=== PATIENT | female | born 1990 | race Caucasian/White ===

== ENCOUNTER 2016-03-07 17:11 | Inpatient (IN) | payer BC ==
[2016-03-07] VITALS (10 sets, daily range): BP systolic 101–142; BP diastolic 55–76
[~2016-03-07] VITALS: Ht 157.5 cm; Wt 65.0 kg
[2016-03-07] MEDS ORDERED: PRENTAB9 PO (17:21)
[2016-03-07] MEDS ORDERED: DULC5TAB PO (17:22)
[2016-03-07] MEDS ORDERED: ANTA500C PO (17:22)
[2016-03-07 18:59] LABS: MEAN CORPUSCULAR HGB CONC 35.5 g/dl (32.0-36.5); RED CELL DISTRIBUTION WIDTH 12.3 % (11.5-14.5); WHITE BLOOD COUNT 12.7 K/mm3 (4.0-10.0)
[2016-03-07] MEDS ORDERED: LACTATED RINGER'S 1000 ML IV STA (20:52)
[2016-03-07] MEDS ORDERED: miSOPROStol 50 MCG 1/2 TAB (S0191) PO SCH (21:00)
[2016-03-07] MEDS ORDERED: BUTORPHANOL 2 MG/ML INJ (J0595) IV PRN (21:00)
[2016-03-07] MEDS ORDERED: PROMETHAZINE INJ 25 MG/ML VIAL (J2550) IV PRN (21:00)
[2016-03-07] MEDS ORDERED: hydrOXYzine 50 MG TAB PO PRN (21:30)
--- NOTE | 2016-03-07 21:56 | HPE ---
DATE OF ADMISSION: 03/07/2016 A 25-year-old 2, para 0-0-1-0, estimated date of delivery 02/29/2016, here at 41 weeks gestation for induction of labor. Denies regular contractions, loss of fluid, bleeding. Fetus is active. Last normal menstrual period uncertain. Sonogram at 8 weeks confirmed the date of 02/29/2016. Anatomy scan within normal limits. OBSTETRICAL HISTORY: 2015: Elective termination. She is allergic to AZITHROMYCIN. MEDICAL/SURGICAL: Migraines, thyroid disease, tonsillectomy and knee surgery. FAMILY HISTORY: Cancer, hypertension and heart disease. SOCIAL HISTORY: Single. Father of the baby and family present and supportive. Denies tobacco, alcohol or drugs. OBJECTIVE: Prepregnancy weight 115, total weight gain 41 pounds. O+, antibody negative. Pap is ASCUS. Negative human papillomavirus. Rubella immune. VDRL, hepatitis B, hepatitis C, HIV, gonorrhea, Chlamydia all negative. Quad screen within normal limits. 1-hour glucose 69 and group B strep is negative. Vital signs are stable. She is in no apparent distress. Heart rate is regular. Respirations are easy. Abdomen is soft, gravid, longitudinal lie. Irregular contractions. heart 120, moderate variability with accelerations. Cervix is 2-3 cm, 90% and -1. ASSESSMENT: Primipara, postdates, for induction of labor, category one tracing. PLAN: Admit, labor ad jason, anticipate normal spontaneous vaginal .
[2016-03-07] MEDS ORDERED: LR 1,000 ML IV SCH (22:09)
[2016-03-07] MEDS ORDERED: OXYTOCIN DRIP 30 UNITS in APPROPRIATE DILUENT 1 EA IV SCH (22:15)
[2016-03-07] MEDS ORDERED: FENTANYL 2MCG/ML ROPIVACAINE 0.2% NACL 250 ML CADD As Ordered ONE (22:22)
[2016-03-07] MEDS ORDERED: EPIDURAL COMMENT XX SCH (23:05)
[2016-03-07] MEDS ORDERED: REFRIGERATOR IV KEYS XX PRN (23:05)
[2016-03-07] MEDS ORDERED: ePHEDrine SULFATE 25 MG/5 ML(5MG/ML) SYRINGE IV PRN (23:05)
[2016-03-07] MEDS ORDERED: diphenhydrAMINE INJ 50MG/ML VIAL (J1200) IV PRN (23:05)
[2016-03-07] MEDS ORDERED: NALOXONE INJ 0.4 MG/1 ML VIAL (J2310) IV PRN (23:05)
[2016-03-07] MEDS ORDERED: FENTANYL/ROPIVACAINE/NACL CADD 250 ML EPIDURAL SCH (23:05)
[2016-03-07] MEDS ORDERED: ONDANSETRON 4MG/2ML VIAL (J2405) IV PRN (23:05)
[2016-03-07] MEDS ORDERED: EPIDURAL/PCA KEYS XX PRN (23:05)
[2016-03-08] VITALS (24 sets, daily range): BP systolic 97–135; BP diastolic 50–85
[2016-03-08] MEDS ORDERED: OXYTOCIN 30 UNITS IN 0.9% NaCl 500ML IV BAG (J2590) As Ordered ONE (01:22)
[2016-03-08] MEDS ORDERED: IBUPROFEN 800 MG TAB As Ordered ONE (07:32)
[2016-03-08] MEDS ORDERED: ANUSOL HC CREAM 30GM TOP PRN (08:00)
[2016-03-08] MEDS ORDERED: METHYLERGONOVINE MALEATE 0.2 MG TAB PO PRN (08:00)
[2016-03-08] MEDS ORDERED: DOCUSATE SODIUM 100 MG CAP PO PRN (08:00)
[2016-03-08] MEDS ORDERED: MOM 30ML SUSPENSION UDC PO PRN (08:00)
[2016-03-08] MEDS ORDERED: DIBUCAINE 1% OINTMENT 30GM TOP PRN (08:00)
[2016-03-08] MEDS ORDERED: ACETAMINOPHEN 500 MG TAB PO PRN (08:00)
[2016-03-08] MEDS ORDERED: MEASLES,MUMPS,RUBELLA VACCINE INJ (MMR-II) (90707) SC SCH (08:00)
[2016-03-08] MEDS ORDERED: RHOGAM 300 MCG (1500 IU) INJ (J2790) IM SCH (08:00)
--- NOTE | 2016-03-08 08:16 | DN ---
DATE: 03/08/2016 Spontaneous rupture of membranes clear fluid at 2206. Utilized epidural for coping. Fully dilated 0637. Viable male delivered, right occiput anterior (HOMER) at 0716. Spontaneous respirations. Transitioned on maternal abdomen. Cord doubly clamped and cut once pulsations ceased. Apgars 8 and 9. Placenta Hummel intact with three-vessel cord at 0725. Fundus firmed with massage and IV Pitocin bolus. Estimated blood loss 200 mL. First-degree vaginal laceration and bilateral labial lacerations repaired with #3-0 Vicryl Rapide. Infant weight 8 pounds 2 ounces, 3684 grams. Sponge, sharp and instrument count correct. Mom and baby doing well.
[2016-03-08] MEDS: PRENATAL VITAMIN TAB PO SCH (09:00)
[2016-03-08] MEDS: IBUPROFEN 800 MG TAB PO PRN ×2 (13:00→18:39)
[2016-03-08] MEDS ORDERED: IBUPROFEN 800 MG TAB PO PRN (15:30)
[2016-03-09] MEDS: IBUPROFEN 800 MG TAB PO PRN ×2 (04:12→14:43)
[2016-03-09 05:39] VITALS: BP 106/55
[2016-03-09 06:15] VITALS: BP 142/81
[2016-03-09] MEDS: PRENATAL VITAMIN TAB PO SCH (08:18)
[2016-03-09 18:00] VITALS: BP 103/55
[2016-03-10 05:47] VITALS: BP 109/59
[2016-03-10] MEDS: PRENATAL VITAMIN TAB PO SCH (09:00)
[2016-03-10] MEDS ORDERED: ACET50TA PO (10:14)
[2016-03-10] MEDS ORDERED: IBUP-1114 PO (10:16)
[2016-03-10] MEDS: IBUPROFEN 800 MG TAB PO PRN (11:17)
== END 2016-03-10 13:30 | disposition home or self-care (01) | DRG 560 ==
LOC: M LDI 17:11 → M OBS 03-08 12:55
PROVIDERS: ADMIT Advanced Practice Midwife; ATTEND Advanced Practice Midwife
PROC: 3E0P7GC Introduction of Other Therapeutic Substance into Female Reproductive, Via Natural or Artificial Opening (ICD-10-PCS; 2016-03-07)
PROC: 10E0XZZ Delivery of Products of Conception, External Approach (ICD-10-PCS; principal; 2016-03-08)
PROC: 0HQ9XZZ Repair Perineum Skin, External Approach (ICD-10-PCS; 2016-03-08)
DX: O48.0 Post-term pregnancy (principal); O70.0 First degree perineal laceration during delivery; Z3A.41 41 weeks gestation of pregnancy; Z37.0 Single live birth

== ENCOUNTER → 2016-07-11 | Outpatient (REF) | payer BC ==
[~2016-07-11] MED LIST: ACET50TA PO; ANTA500C PO; DULC5TAB PO; IBUP-1114 PO; PRENTAB9 PO
[2016-07-11 14:21] LABS: PERCENT SATURATION 25.9 % (13.2-37.4)
== END ==
LOC: M LAB REF 13:28
PROVIDERS: ATTEND Internal Medicine
DX: D64.9 Anemia, unspecified (principal)

== ENCOUNTER → 2016-08-07 | Outpatient (REF) | payer BC, SELFPAY | LOC: M LAB REF 17:53 | PROVIDERS: ATTEND Advanced Practice Midwife | DX: Z01.411 Encounter for gynecological examination (general) (routine) with abnormal findings (principal); R85.610 Atypical squamous cells of undetermined significance on cytologic smear of anus (ASC-US); Z11.51 Encounter for screening for human papillomavirus (HPV) ==

== ENCOUNTER → 2016-09-16 | Outpatient (CLI) | payer BC, SELFPAY ==
[~2016-09-16] MED LIST changes: +E-Z-PAQUE 96% w/w SUSP 176GM BTL As Ordered ONE
--- NOTE | 2016-09-17 15:35 | REP ---
Small bowel follow-through The procedure was performed under the direct supervision of Dr. Jackson. The images were reviewed with Dr. Jackson. The bowling ball weigher and packer film shows no organomegaly or pathological masses. The intestinal gas pattern is nonspecific. Liquid barium was administered and the barium column was followed through the small bowel to the level of the terminal ileum. Small bowel transit time is approximately 30 minutes . During fluoroscopy gentle palpation shows all loops are freely movable and pliable. There are no fixed or angulated loops. The small bowel mucosal pattern is normal in course and caliber. There is no transition to suggest a partial small bowel obstruction. Spot filming of the terminal ileum shows it to be unremarkable. Impression: Small bowel follow-through examination within normal limits. 42 seconds of fluoro time was utilized for this procedure. Reviewed by JENNIFER Caldwell 09/16/2016 04:14 PSigned by Sarkis Jackson MD 09/17/2016 03:25 P
== END ==
LOC: M RAD 08:23
PROVIDERS: ATTEND Physician Assistant
DX: K59.00 Constipation, unspecified (principal); R19.7 Diarrhea, unspecified; K62.5 Hemorrhage of anus and rectum; R14.0 Abdominal distension (gaseous); R14.1 Gas pain; R12 Heartburn

== ENCOUNTER → 2017-01-01 | Outpatient (CLI) | payer BC ==
[~2017-01-01] MED LIST changes: -E-Z-PAQUE 96% w/w SUSP 176GM BTL As Ordered ONE
[2017-01-01 14:25] LABS: BASO % 0.4 % (0.0-1.0); EOS % 0.5 % (0.0-3.0); IMMATURE GRANULOCYTE % 0.4 % (0-0); LYMPH # 1.7 10^3/uL (1.5-6.5); LYMPH % 22.8 % (24.0-44.0); MEAN CORPUSCULAR HEMOGLOBIN 31.2 pg (27.0-33.0); MEAN CORPUSCULAR HGB CONC 34.8 g/dl (32.0-36.5); MEAN CORPUSCULAR VOLUME 89.7 fl (80.0-96.0); MONO # 0.6 10^3/uL (0.0-0.8); MONO % 8.7 % (0.0-5.0); NEUTROPHILS # 4.9 10^3/uL (1.8-7.7); NEUTROPHILS % 67.2 % (36.0-66.0); PLATELET COUNT, AUTOMATED 181 10^3/uL (150-450); RED CELL DISTRIBUTION WIDTH 11.3 % (11.5-14.5); WHITE BLOOD COUNT 7.3 10^3/uL (4.0-10.0)
[2017-01-01 14:41] LABS: T UPTAKE 25 % (30-39); THYROXINE (T4) 11.9 UG/DL (4.5-12.0)
[2017-01-01 14:47] LABS: HBsAg Prenatal NEGATIVE (NEGATIVE)
== END ==
LOC: M SMT 08:30
PROVIDERS: ATTEND Advanced Practice Midwife
DX: Z34.81 Encounter for supervision of other normal pregnancy, first trimester (principal); Z3A.01 Less than 8 weeks gestation of pregnancy

== ENCOUNTER → 2017-02-27 | Outpatient (REF) | payer BC | LOC: M LAB REF 13:16 | DX: Z34.82 Encounter for supervision of other normal pregnancy, second trimester (principal); Z3A.00 Weeks of gestation of pregnancy not specified | CPT/HCPCS: 87086 ==

== ENCOUNTER → 2017-03-10 | Outpatient (CLI) | payer BC | LOC: M RAD 11:10 | DX: Z36.89 Encounter for other specified antenatal screening (principal); Z3A.18 18 weeks gestation of pregnancy | CPT/HCPCS: 76811 ==

== ENCOUNTER → 2017-05-06 | Outpatient (CLI) | payer BC ==
[2017-05-06 12:04] LABS: HEMOGLOBIN 12.1 g/dl (12.0-16.0); MEAN CORPUSCULAR HGB CONC 33.6 g/dl (32.0-36.5); MEAN CORPUSCULAR VOLUME 92.3 fl (80.0-96.0); PLATELET COUNT, AUTOMATED 196 10^3/uL (150-450); RED CELL DISTRIBUTION WIDTH 12.4 % (11.5-14.5); WHITE BLOOD COUNT 10.2 10^3/uL (4.0-10.0)
[2017-05-06 12:36] LABS: GLUCOSE CHALLENGE TEST 1 HOUR 89 MG/DL (LESS THAN 140)
== END ==
LOC: M SMT 08:13
DX: Z34.82 Encounter for supervision of other normal pregnancy, second trimester (principal); Z3A.00 Weeks of gestation of pregnancy not specified
CPT/HCPCS: 82950

== ENCOUNTER → 2017-07-14 | Outpatient (CLI) | payer BC | LOC: M RAD 10:23 | DX: Z34.83 Encounter for supervision of other normal pregnancy, third trimester (principal); Z3A.32 32 weeks gestation of pregnancy | CPT/HCPCS: 76816 ==

== ENCOUNTER 2017-08-18 06:24 | Inpatient (IN) | payer BC ==
[2017-08-18] MEDS: LACTATED RINGER'S 1000 ML IV (08:24)
[2017-08-18] MEDS: miSOPROStol 50 MCG 1/2 TAB (S0191) SL (08:27)
[2017-08-18 08:41] LABS: HEMATOCRIT 37.2 % (36.0-47.0); HEMOGLOBIN 13.1 g/dl (12.0-15.5); MEAN CORPUSCULAR HEMOGLOBIN 31.7 pg (27.0-33.0); MEAN CORPUSCULAR HGB CONC 35.2 g/dl (32.0-36.5); MEAN CORPUSCULAR VOLUME 90.1 fl (80.0-96.0); PLATELET COUNT, AUTOMATED 163 10^3/uL (150-450); RED BLOOD COUNT 4.13 10^6/uL (4.00-5.40); WHITE BLOOD COUNT 10.9 10^3/uL (4.0-10.0)
[2017-08-18] MEDS: ACETAMINOPHEN 500 MG TAB PO (12:02)
[2017-08-18] MEDS ORDERED: FENTANYL 2MCG/ML ROPIVACAINE 0.2% IN 0.9% NACL 200ML IVBAG As Ordered (12:36)
[2017-08-18] MEDS: LR 1,000 ML IV ×2 (12:50→13:20)
[2017-08-18] MEDS ORDERED: LR 1,000 ML IV (13:41)
[2017-08-18] MEDS: OXYTOCIN DRIP 30 UNITS in APPROPRIATE DILUENT 1 EA IV (13:51)
[2017-08-18] MEDS ORDERED: REFRIGERATOR IV KEYS XX (14:15)
[2017-08-18] MEDS ORDERED: NALOXONE INJ 0.4 MG/1 ML VIAL (J2310) IV (14:15)
[2017-08-18] MEDS ORDERED: EPIDURAL COMMENT XX (14:15)
[2017-08-18] MEDS ORDERED: diphenhydrAMINE INJ 50MG/ML VIAL (J1200) IV (14:15)
[2017-08-18] MEDS ORDERED: FENTANYL/ROPIVACAINE/NACL BAG 200 ML EPIDURAL (14:15)
[2017-08-18] MEDS ORDERED: ePHEDrine SULFATE 25 MG/5 ML(5MG/ML) SYRINGE IV (14:15)
[2017-08-18] MEDS ORDERED: LACTATED RINGER'S 1000 ML IV (14:15)
[2017-08-18] MEDS ORDERED: ONDANSETRON 4MG/2ML VIAL (J2405) IV (14:15)
[2017-08-18] MEDS ORDERED: EPIDURAL/PCA KEYS XX (14:15)
[2017-08-18] MEDS ORDERED: ANUSOL HC CREAM 30GM TOP (17:15)
[2017-08-18] MEDS ORDERED: MOM 30ML SUSPENSION UDC PO (17:15)
[2017-08-18] MEDS ORDERED: DIBUCAINE 1% OINTMENT 30GM TOP (17:15)
[2017-08-18] MEDS: METHYLERGONOVINE MALEATE 0.2 MG TAB PO ×2 (17:23→23:41)
[2017-08-18] MEDS: IBUPROFEN 800 MG TAB PO (23:41)
[2017-08-19] MEDS: METHYLERGONOVINE MALEATE 0.2 MG TAB PO ×3 (05:14→17:12)
[2017-08-19] MEDS: MEASLES,MUMPS,RUBELLA VACCINE INJ (MMR-II) (90707) SC (07:04)
[2017-08-19] MEDS: RHOGAM 300 MCG (1500 IU) INJ (J2790) IM (07:04)
[2017-08-19] MEDS: IBUPROFEN 800 MG TAB PO (07:41)
[2017-08-19] MEDS: PRENATAL VITAMINS CHEWABLE TABLET PO (07:41)
[2017-08-19] MEDS: ACETAMINOPHEN 500 MG TAB PO (18:17)
[2017-08-19] MEDS: DOCUSATE SODIUM 100 MG CAP PO (20:02)
[2017-08-19] MEDS ORDERED: METHYLERGONOVINE MALEATE 0.2 MG TAB PO (23:00)
[2017-08-20] MEDS: PRENATAL VITAMINS CHEWABLE TABLET PO (07:42)
== END 2017-08-20 12:35 | disposition home or self-care (01) | DRG 560 ==
LOC: M LDI 06:24 → M OBS 08-19 13:22
PROVIDERS: Advanced Practice Midwife
PROC: 10E0XZZ Delivery of Products of Conception, External Approach (ICD-10-PCS; principal; 2017-08-18)
PROC: 0HQ9XZZ Repair Perineum Skin, External Approach (ICD-10-PCS; 2017-08-18)
PROC: 3E0P7GC Introduction of Other Therapeutic Substance into Female Reproductive, Via Natural or Artificial Opening (ICD-10-PCS; 2017-08-18)
DX: O48.0 Post-term pregnancy (principal); O70.0 First degree perineal laceration during delivery; Z3A.41 41 weeks gestation of pregnancy; Z37.0 Single live birth

== ENCOUNTER → 2017-11-06 | Outpatient (REF) | payer BC ==
[2017-11-06 16:07] LABS: CHLAMYDIA DNA AMPLIFICATION NEGATIVE (NEGATIVE); GC DNA AMPLIFICATION NEGATIVE (NEGATIVE)
== END ==
LOC: M LAB REF 13:37
DX: Z11.3 Encounter for screening for infections with a predominantly sexual mode of transmission (principal)
CPT/HCPCS: 87591

== ENCOUNTER → 2018-01-26 | Outpatient (REF) | payer BC | LOC: M LAB REF 01-27 13:42 | DX: R87.610 Atypical squamous cells of undetermined significance on cytologic smear of cervix (ASC-US) (principal) | CPT/HCPCS: 88304 ==

== ENCOUNTER → 2018-04-23 | Outpatient (REF) | payer BC ==
[~2018-04-23] MED LIST changes: -ACET50TA PO; +MAPA500T2 PO
== END ==
LOC: M SFHCLERA 10:36
PROVIDERS: ATTEND Physician Assistant
DX: J02.9 Acute pharyngitis, unspecified (principal)

== ENCOUNTER 2018-05-17 20:55 | Emergency (ER) | payer BC ==
[~2018-05-17] VITALS: Ht 157.5 cm; Wt 50.5 kg
[2018-05-17 22:24] LABS: HEMATOCRIT 36.5 % (36.0-47.0); HEMOGLOBIN 12.3 g/dl (12.0-15.5); MEAN CORPUSCULAR HEMOGLOBIN 30.7 pg (27.0-33.0); MEAN CORPUSCULAR HGB CONC 33.7 g/dl (32.0-36.5); PLATELET COUNT, AUTOMATED 175 10^3/uL (150-450); RED BLOOD COUNT 4.01 10^6/uL (4.00-5.40); WHITE BLOOD COUNT 7.2 10^3/uL (4.0-10.0)
[2018-05-17 22:27] LABS: APPEARANCE, URINE HAZY (CLEAR); BACTERIA, URINE AUTO NEGATIVE (NEGATIVE); BILIRUBIN, URINE AUTO NEGATIVE (NEGATIVE); BLOOD, URINE BLOOD NEGATIVE (NEGATIVE); COLOR, URINE YELLOW (YELLOW); GLUCOSE, URINE (UA) AUTO NEGATIVE (NEGATIVE); KETONE, URINE AUTO NEGATIVE (NEGATIVE); LEUKOCYTE ESTERASE, URINE AUTO TRACE (NEGATIVE); NITRITE, URINE AUTO NEGATIVE (NEGATIVE); PROTEIN, URINE AUTO NEGATIVE (NEGATIVE); RBC, URINE AUTO 0 /HPF (0-3); SPECIFIC GRAVITY URINE AUTO 1.018 (1.002-1.035); SQUAMOUS EPITHELIAL CELL UR AU 2 /HPF (0-6); UROBILINOGEN, URINE AUTO 0.2 mg/dL (0.0-2.0); WBC, URINE AUTO 3 /HPF (0-3)
[2018-05-17 22:53] LABS: ALBUMIN 3.9 GM/DL (3.2-5.2); ALT/SGPT 18 U/L (12-78); BILIRUBIN,TOTAL 0.3 MG/DL (0.2-1.0); BLOOD UREA NITROGEN 17 MG/DL (7-18); CALCIUM LEVEL 8.4 MG/DL (8.5-10.1); CARBON DIOXIDE LEVEL 27 MEQ/L (21-32); CHLORIDE LEVEL 108 MEQ/L (98-107); CREATININE FOR GFR 0.85 MG/DL (0.55-1.30); GLOMERULAR FILTRATION RATE > 60.0 (>60); GLUCOSE, FASTING 89 MG/DL (70-100); POTASSIUM SERUM 4.1 MEQ/L (3.5-5.1); SODIUM LEVEL 140 MEQ/L (136-145); TOTAL PROTEIN 6.7 GM/DL (6.4-8.2)
[2018-05-17 23:00] LABS: BASO % 0.4 % (0.0-1.0); EOS # 0.1 10^3/uL (0.0-0.50); LYMPH # 1.7 10^3/uL (1.5-6.5); LYMPH % 23.1 % (24.0-44.0); MONO # 0.7 10^3/uL (0.0-0.8); MONO % 10.1 % (0.0-5.0); NEUTROPHILS # 4.7 10^3/uL (1.8-7.7)
[2018-05-17 23:27] LABS: HCG, SERUM QUALITATIVE NEGATIVE (NEGATIVE)
[2018-05-17] MEDS ORDERED: OMEP40CA2 PO (23:46)
[2018-05-18] MEDS ORDERED: OMEPRAZOLE 20 MG CAP PO ONE
[2018-05-18 00:09] VITALS: BP 116/61
[2018-05-18 01:06] LABS: CHLAMYDIA DNA AMPLIFICATION NEGATIVE (NEGATIVE); GC DNA AMPLIFICATION NEGATIVE (NEGATIVE)
== END 2018-05-18 00:08 | disposition home or self-care (01) ==
LOC: M ED 20:55
DX: E83.51 Hypocalcemia (principal); R10.9 Unspecified abdominal pain; G43.909 Migraine, unspecified, not intractable, without status migrainosus; K21.9 Gastro-esophageal reflux disease without esophagitis; K52.9 Noninfective gastroenteritis and colitis, unspecified; Z88.1 Allergy status to other antibiotic agents

== ENCOUNTER → 2018-08-17 | Outpatient (CLI) | payer BC ==
[~2018-08-17] MED LIST changes: -ANTA500C PO; +CALC1CHW3 PO; +OMEP40CA2 PO
--- NOTE | 2018-09-02 10:49 | REP ---
Left upper extremity arterial Doppler ultrasound: Repeat dictation. History: Pain in the left arm numbness and weakness. Question arterial etiology. Findings: Doppler scanning is performed of the arm and neutral position and raise over the head. Normal triphasic waveforms and velocities are observed throughout the arteries of the left upper extremity. Velocity chart arm raised: Proximal subclavian artery 115 cm/S Distal subclavian artery and 16 cm/S Axillary artery 84 cm/S Velocity chart arm at side and neutral position: Left vertebral 89 cm/S normal direction of flow Proximal subclavian artery 89.6 cm/S Distal subclavian artery 90 4 cm/S Left axillary artery 57 cm/S Left brachial artery 64 cm/S Distal brachial artery 87 cm/S Left proximal ulnar artery 58 cm/S Left mid ulnar artery 15 cm/S Distal ulnar artery 16 cm/S Proximal radial artery 29 cm/S Mid radial artery 29 cm/S Distal radial artery 34 cm/S Electronically Signed by Isaiah Parmar MD 09/02/2018 10:40 A
== END ==
LOC: M RAD 09:12
PROVIDERS: ATTEND Surgery Vascular Surgery
DX: M79.602 Pain in left arm (principal)

== ENCOUNTER → 2019-02-02 | Outpatient (CLI) | payer BC ==
[~2019-02-02] MED LIST changes: -OMEP40CA2 PO; +OMEP40CA97 PO
--- NOTE | 2019-02-02 18:25 | REP ---
Two-view chest: 02/02/2019. Indication: Cough. Comparison: None. Findings: The lungs are clear. There is no pleural effusion or pneumothorax. The cardiomediastinal silhouette is unremarkable. Impression: No acute cardiopulmonary process. Electronically Signed by Ozzy Rey DO 02/02/2019 06:16 P
== END ==
LOC: M LRY 17:06
PROVIDERS: ATTEND Physician Assistant Medical
DX: R05 Cough (principal)

== ENCOUNTER → 2019-04-08 | Outpatient (REF) | payer BC ==
[2019-04-08 18:07] LABS: IRON (FE) 64 UG/DL (50-170); PERCENT SATURATION 18.5 % (13.2-45.0); TOTAL IRON BINDING CAPACITY 346 UG/DL (250-450)
[2019-04-08 18:35] LABS: H PYLORI QUALITATIVE IgG NEGATIVE (NEGATIVE)
== END ==
LOC: M LAB REF 16:35
PROVIDERS: ATTEND Internal Medicine
DX: R10.13 Epigastric pain (principal); R53.83 Other fatigue; D64.9 Anemia, unspecified

== ENCOUNTER → 2019-07-02 | Outpatient (REF) | payer BC | LOC: M SFHCWAGY 18:03 | PROVIDERS: ATTEND Nurse Practitioner Women's Health | DX: Z12.4 Encounter for screening for malignant neoplasm of cervix (principal) | CPT/HCPCS: 87624; G0123 ==

== ENCOUNTER → 2019-11-18 | Outpatient (REF) | payer BC ==
[2019-11-18 13:05] LABS: BASO % 0.4 % (0.0-1.0); EOS # 0.1 10^3/uL (0.0-0.5); EOS % 1.1 % (0.0-3.0); HEMATOCRIT 40.9 % (36.0-47.0); HEMOGLOBIN 13.4 g/dl (12.0-15.5); LYMPH # 2.3 10^3/uL (1.5-5.0); LYMPH % 42.9 % (24.0-44.0); MEAN CORPUSCULAR HEMOGLOBIN 31.1 pg (27.0-33.0); MEAN CORPUSCULAR HGB CONC 32.8 g/dl (32.0-36.5); MEAN CORPUSCULAR VOLUME 94.9 fl (80.0-96.0); MONO # 0.5 10^3/uL (0.0-0.8); MONO % 9.5 % (0.0-5.0); NEUTROPHILS # 2.5 10^3/uL (1.5-8.5); NEUTROPHILS % 45.7 % (36.0-66.0); PLATELET COUNT, AUTOMATED 186 10^3/uL (150-450); RED BLOOD COUNT 4.31 10^6/uL (4.00-5.40); WHITE BLOOD COUNT 5.4 10^3/uL (4.0-10.0)
[2019-11-18 13:16] LABS: ALBUMIN 4.1 GM/DL (3.2-5.2); ALT/SGPT 19 U/L (12-78); BILIRUBIN,TOTAL 0.5 MG/DL (0.2-1.0); BLOOD UREA NITROGEN 12 MG/DL (7-18); CALCIUM LEVEL 8.9 MG/DL (8.5-10.1); CARBON DIOXIDE LEVEL 28 MEQ/L (21-32); CHLORIDE LEVEL 108 MEQ/L (98-107); CREATININE FOR GFR 0.88 MG/DL (0.55-1.30); FREE T3 2.4 PG/ML (2.2-4.0); FREE T4 0.81 NG/DL (0.76-1.46); GLOMERULAR FILTRATION RATE > 60.0 (>60); GLUCOSE, FASTING 73 MG/DL (70-100); POTASSIUM SERUM 4.1 MEQ/L (3.5-5.1); SODIUM LEVEL 140 MEQ/L (136-145); TOTAL PROTEIN 7.2 GM/DL (6.4-8.2); TOTAL T3 72.2 NG/DL (60.0-181.0)
== END ==
LOC: M LABDRAWC 11:33
PROVIDERS: ATTEND Nurse Practitioner Family
DX: F41.1 Generalized anxiety disorder (principal); E07.9 Disorder of thyroid, unspecified

== ENCOUNTER 2019-11-22 20:24 | Emergency (ER) | payer BC ==
[~2019-11-22] VITALS: Ht 157.5 cm; Wt 50.2 kg
[2019-11-22 23:10] LABS: BASO % 0.3 % (0.0-1.0); EOS % 0.3 % (0.0-3.0); HEMATOCRIT 38.7 % (36.0-47.0); HEMOGLOBIN 13.1 g/dl (12.0-15.5); LYMPH # 1.7 10^3/uL (1.5-5.0); LYMPH % 22.7 % (24.0-44.0); MEAN CORPUSCULAR HEMOGLOBIN 30.8 pg (27.0-33.0); MEAN CORPUSCULAR HGB CONC 33.9 g/dl (32.0-36.5); MEAN CORPUSCULAR VOLUME 90.8 fl (80.0-96.0); MONO # 0.5 10^3/uL (0.0-0.8); MONO % 6.9 % (0.0-5.0); NEUTROPHILS # 5.4 10^3/uL (1.5-8.5); NEUTROPHILS % 69.5 % (36.0-66.0); PLATELET COUNT, AUTOMATED 182 10^3/uL (150-450); RED BLOOD COUNT 4.26 10^6/uL (4.00-5.40); WHITE BLOOD COUNT 7.7 10^3/uL (4.0-10.0)
[2019-11-22 23:42] LABS: CK-MB VALUE MASS < 1.0 NG/ML (<3.6); CPK CREATINE PHOSPHOKINASE 96 U/L (26-192); MB/CK RELATIVE INDEX 1.04 (< OR =4); TROPONIN I < 0.02 NG/ML (< 0.10)
[2019-11-23 00:32] VITALS: BP 121/69
--- NOTE | 2019-11-23 01:19 | REPVR ---
PROCEDURE INFORMATION: Exam: XR Chest, 2 Views Exam date and time: 11/23/2019 12:19 AM Age: 29 years old Clinical indication: Shortness of breath; Additional info: Chest pain TECHNIQUE: Imaging protocol: XR of the chest Views: 2 views. COMPARISON: [place] CHEST 2 VIEW 02/02/2019 5:59 PM FINDINGS: Lungs: Degree of inflation of the lungs is normal. No evidence of pulmonary edema. No focal airspace process. No concerning parenchymal lung mass. Pleural space: No pleural effusion or pneumothorax. Heart/Mediastinum: Cardiac silhouette appears normal. No mediastinal adenopathy or hilar mass. Bones/joints: Osseous structures show no acute or concerning abnormality. IMPRESSION: No active or focal cardiopulmonary process. Electronically signed by: Matt Stein On 11/23/2019 01:19:03 AM
--- NOTE | 2019-11-23 09:39 | ECGEPIP ---
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
== END 2019-11-23 00:44 | disposition home or self-care (01) ==
LOC: M ED 20:24
DX: M54.2 Cervicalgia (principal); G62.9 Polyneuropathy, unspecified; K21.9 Gastro-esophageal reflux disease without esophagitis; F17.210 Nicotine dependence, cigarettes, uncomplicated; Z88.1 Allergy status to other antibiotic agents

== ENCOUNTER → 2019-11-26 | Outpatient (CLI) | payer BC ==
--- NOTE | 2019-12-02 08:15 | ECHO ---
DATE OF PROCEDURE: 11/26/2019 Age: 29 Gender: Female REFERRING PHYSICIAN: Kelly Zacarias NP PATIENT LOCATION: Outpatient. REASON FOR STUDY: Abnormal EKG: incomplete right bundle branch block. 2D MEASUREMENTS: IVS 0.6 cm LV 4.5 cm LVPW 0.6 cm LA 2.7 cm Aorta 2.2 cm IVC 1.5 cm DOPPLER MEASUREMENT Peak velocity across the aortic valve 1.1 m/s Peak velocity across the LVOT 0.7 m/s Mitral E 1.2 Mitral A 0.6 with a ratio of 2.0 2D COMMENTS: 1. Normal left ventricular size, wall thickness, and normal global left ventricular systolic function. The estimated left ventricular systolic ejection fraction is 65% to 70%. 2. Normal left atrium. Normal right atrium and right ventricle. 3. The atrial septum appeared to be normal without evidence of defect or shunt. 4. Normal aortic root. 5. No pericardial effusion seen. 6. The aortic valve appeared to be normal. There was mild bowing of the anterior mitral valve leaflet toward the left atrium, but no definite mitral valve prolapse. Normal tricuspid valve. The pulmonic valve appeared to be normal in limited views. 7. The inferior vena cava was normal in size. Central venous pressure is most likely normal. Doppler with only trace mitral regurgitation detected. IMPRESSION: 1. Normal global left ventricular systolic and diastolic function. 2. Trace mitral regurgitation. No definitive mitral valve prolapse noted. 3. No intracardiac shunt detected. MTDD
== END ==
LOC: M CARPUL 09:20
PROVIDERS: ATTEND Nurse Practitioner Family
DX: I45.10 Unspecified right bundle-branch block (principal); I34.0 Nonrheumatic mitral (valve) insufficiency

== ENCOUNTER → 2020-04-11 | Outpatient (REF) | payer BC | LOC: M SFHCCLAY 16:25 | PROVIDERS: ATTEND Physician Assistant | DX: R30.0 Dysuria (principal) ==

== ENCOUNTER → 2020-06-15 | Outpatient (REF) | payer BC ==
[2020-06-15 12:49] LABS: FOLLICLE STIMULATING HORMONE 7.7 mIU/mL; FREE T4 0.76 NG/DL (0.76-1.46)
[2020-06-15 13:03] LABS: HCG, SERUM QUALITATIVE NEGATIVE (NEGATIVE)
== END ==
LOC: M PLALAB 08:04
PROVIDERS: ATTEND Advanced Practice Midwife
DX: N92.0 Excessive and frequent menstruation with regular cycle (principal)

== ENCOUNTER → 2020-11-10 | Outpatient (REF) | payer BC ==
[~2020-11-10] MED LIST changes: +OMEP40CA4 PO; -OMEP40CA97 PO
== END ==
LOC: M SFHCCLAY 11:18
PROVIDERS: ATTEND Physician Assistant
DX: Z20.822 Contact with and (suspected) exposure to COVID-19 (principal)

== ENCOUNTER → 2021-05-09 | Outpatient (REF) | payer BC ==
[2021-05-10 11:33] LABS: BASO % 0.5 % (0.0-1.0); EOS # 0.1 10^3/uL (0.0-0.5); EOS % 0.7 % (0.0-3.0); HEMATOCRIT 40.3 % (36.0-47.0); HEMOGLOBIN 13.6 g/dl (12.0-15.5); LYMPH # 2.5 10^3/uL (1.5-5.0); LYMPH % 33.9 % (24.0-44.0); MEAN CORPUSCULAR HEMOGLOBIN 31.7 pg (27.0-33.0); MEAN CORPUSCULAR HGB CONC 33.7 g/dl (32.0-36.5); MEAN CORPUSCULAR VOLUME 93.9 fl (80.0-96.0); MONO # 0.7 10^3/uL (0.0-0.8); MONO % 9.6 % (2.0-8.0); NEUTROPHILS % 55.2 % (36.0-66.0); PLATELET COUNT, AUTOMATED 206 10^3/uL (150-450); RED BLOOD COUNT 4.29 10^6/uL (4.00-5.40); WHITE BLOOD COUNT 7.3 10^3/uL (4.0-10.0)
[2021-05-10 14:11] LABS: BLOOD UREA NITROGEN 11 MG/DL (7-18); CREATININE FOR GFR 0.68 MG/DL (0.55-1.30); GLOMERULAR FILTRATION RATE > 60.0 (>60); GLUCOSE, FASTING 80 MG/DL (70-100); SODIUM LEVEL 138 MEQ/L (136-145)
[2021-05-10 14:12] LABS: ALBUMIN 4.4 GM/DL (3.2-5.2); ALT/SGPT 34 U/L (12-78); BILIRUBIN,TOTAL 0.3 MG/DL (0.2-1.0); CALCIUM LEVEL 8.9 MG/DL (8.5-10.1); CARBON DIOXIDE LEVEL 27 MEQ/L (21-32); CHLORIDE LEVEL 103 MEQ/L (98-107); FREE T4 0.87 NG/DL (0.76-1.46); POTASSIUM SERUM 4.2 MEQ/L (3.5-5.1); TOTAL 25(OH) VITAMIN D 20.1 NG/ML (30.0-100.0); TOTAL PROTEIN 7.4 GM/DL (6.4-8.2)
== END ==
LOC: M SFHCCLAY 13:31
PROVIDERS: ATTEND Nurse Practitioner Family
DX: F41.1 Generalized anxiety disorder (principal); R63.5 Abnormal weight gain; F32.A Depression, unspecified

== ENCOUNTER → 2022-08-01 | Outpatient (CLI) | payer BC | LOC: M CLY 11:06 | PROVIDERS: ATTEND Student in an Organized Health Care Education/Training Program | DX: M48.02 Spinal stenosis, cervical region (principal) ==

== ENCOUNTER → 2022-11-07 | Outpatient (REF) | payer OTHER ==
[2022-11-07 12:11] LABS: BASO % 0.3 % (0.0-1.0); EOS # 0.1 10^3/uL (0.0-0.5); EOS % 0.9 % (0.0-3.0); HEMATOCRIT 41.7 % (36.0-47.0); HEMOGLOBIN 13.8 g/dl (12.0-15.5); LYMPH # 2.3 10^3/uL (1.5-5.0); LYMPH % 34.1 % (24.0-44.0); MEAN CORPUSCULAR HEMOGLOBIN 31.4 pg (27.0-33.0); MEAN CORPUSCULAR HGB CONC 33.1 g/dl (32.0-36.5); MONO # 0.7 10^3/uL (0.0-0.8); MONO % 10.9 % (2.0-8.0); NEUTROPHILS # 3.6 10^3/uL (1.5-8.5); NEUTROPHILS % 53.5 % (36.0-66.0); PLATELET COUNT, AUTOMATED 249 10^3/uL (150-450); RED BLOOD COUNT 4.39 10^6/uL (4.00-5.40); WHITE BLOOD COUNT 6.8 10^3/uL (4.0-10.0)
[2022-11-07 12:42] LABS: ALBUMIN 4.1 G/DL (3.2-5.2); ALKALINE PHOSPHATASE 73 U/L (46-116); ALT/SGPT 30 U/L (7.0-40); AST/SGOT 19 U/L (<34); BILIRUBIN,TOTAL 0.6 MG/DL (0.3-1.2); BLOOD UREA NITROGEN 13 MG/DL (9-23); CALCIUM LEVEL 9.3 MG/DL (8.5-10.1); CARBON DIOXIDE LEVEL 28 MMOL/L (20-31); CHLORIDE LEVEL 102 MMOL/L (98-107); CREATININE FOR GFR 0.79 MG/DL (0.55-1.30); GLOMERULAR FILTRATION RATE > 60.0 (>60); GLUCOSE, FASTING 86 MG/DL (60-100); POTASSIUM SERUM 4.1 MMOL/L (3.5-5.1); SODIUM LEVEL 138 MMOL/L (136-145); TOTAL PROTEIN 7.4 G/DL (5.7-8.2)
[2022-11-07 12:43] LABS: FREE T4 0.96 NG/DL (0.89-1.76)
[2022-11-07 12:44] LABS: THYROID STIMULATING HORMONE 2.594 uIU/ML (0.55-4.78); TOTAL 25(OH) VITAMIN D 27.1 NG/ML (20.0-100.0)
== END ==
LOC: M SFHCCLAY 08:39
PROVIDERS: ATTEND Nurse Practitioner Family
DX: F41.1 Generalized anxiety disorder (principal); R63.5 Abnormal weight gain; F32.A Depression, unspecified

== ENCOUNTER → 2023-03-13 | Outpatient (REF) | payer OTHER | LOC: M SFHCWAGY 17:22 | PROVIDERS: ATTEND Nurse Practitioner Family | DX: Z12.4 Encounter for screening for malignant neoplasm of cervix (principal); Z11.51 Encounter for screening for human papillomavirus (HPV); Z77.9 Other contact with and (suspected) exposures hazardous to health; Z01.419 Encounter for gynecological examination (general) (routine) without abnormal findings | CPT/HCPCS: 87624; G0123 ==

== ENCOUNTER → 2023-10-07 | Outpatient (CLI) | payer OTHER | LOC: M RAD 12:30 | PROVIDERS: ATTEND Nurse Practitioner Family | DX: M25.561 Pain in right knee (principal) ==

== ENCOUNTER → 2023-10-09 | Outpatient (CLI) | payer OTHER | LOC: M SOG 12:55 | PROVIDERS: ATTEND Physician Assistant | DX: M25.561 Pain in right knee (principal); Z53.9 Procedure and treatment not carried out, unspecified reason ==

== ENCOUNTER → 2023-10-23 | Outpatient (CLI) | payer OTHER ==
[2023-10-23 11:04] LABS: BASO % 0.4 % (0.0-1.0); EOS % 0.6 % (0.0-3.0); HEMATOCRIT 43.4 % (36.0-47.0); HEMOGLOBIN 14.5 g/dl (12.0-15.5); LYMPH # 1.9 10^3/uL (1.5-5.0); LYMPH % 40.2 % (24.0-44.0); MEAN CORPUSCULAR HEMOGLOBIN 31.3 pg (27.0-33.0); MEAN CORPUSCULAR HGB CONC 33.4 g/dl (32.0-36.5); MEAN CORPUSCULAR VOLUME 93.7 fl (80.0-96.0); MONO # 0.5 10^3/uL (0.0-0.8); MONO % 9.7 % (2.0-8.0); NEUTROPHILS # 2.3 10^3/uL (1.5-8.5); NEUTROPHILS % 48.7 % (36.0-66.0); PLATELET COUNT, AUTOMATED 213 10^3/uL (150-450); RED BLOOD COUNT 4.63 10^6/uL (4.00-5.40); WHITE BLOOD COUNT 4.6 10^3/uL (4.0-10.0)
[2023-10-23 11:29] LABS: ALBUMIN 4.5 G/DL (3.2-5.2); ALKALINE PHOSPHATASE 89 U/L (46-116); ALT/SGPT 44 U/L (7.0-40); AST/SGOT 35 U/L (<34); BILIRUBIN,TOTAL 0.5 MG/DL (0.3-1.2); BLOOD UREA NITROGEN 8 MG/DL (9-23); CALCIUM LEVEL 9.8 MG/DL (8.5-10.1); CARBON DIOXIDE LEVEL 29 MMOL/L (20-31); CHLORIDE LEVEL 100 MMOL/L (98-107); CREATININE FOR GFR 0.72 MG/DL (0.55-1.30); GLOMERULAR FILTRATION RATE > 60.0 (>60); GLUCOSE, FASTING 84 MG/DL (60-100); POTASSIUM SERUM 4.4 MMOL/L (3.5-5.1); SODIUM LEVEL 135 MMOL/L (136-145)
[2023-10-23 12:12] LABS: Trichomonas vaginalis (AMP) NOT DETECTED (NEGATIVE)
[2023-10-23 12:36] LABS: GC DNA AMPLIFICATION NEGATIVE (NEGATIVE)
[2023-10-24 11:37] LABS: HSV 1 IGG TYPE SPECIFIC < 0.90 index (<0.90); HSV 2 IGG TYPE SPECIFIC < 0.90 index (<0.90)
[2023-10-29 13:11] LABS: HPV APTIMA Not Detected (Not Detected)
== END ==
LOC: M LAB 10:24
PROVIDERS: ATTEND Nurse Practitioner Family
DX: Z12.4 Encounter for screening for malignant neoplasm of cervix (principal); R10.12 Left upper quadrant pain; R19.7 Diarrhea, unspecified; R19.8 Other specified symptoms and signs involving the digestive system and abdomen; R10.2 Pelvic and perineal pain; N89.8 Other specified noninflammatory disorders of vagina; R87.611 Atypical squamous cells cannot exclude high grade squamous intraepithelial lesion on cytologic smear of cervix (ASC-H); R87.5 Abnormal microbiological findings in specimens from female genital organs
CPT/HCPCS: 80053; 85025; 86695; 86696; 87255; 87624; 87661; 87810; 87850; G0123

== ENCOUNTER → 2023-10-24 | Outpatient (CLI) | payer OTHER | LOC: M RAD 14:43 | PROVIDERS: ATTEND Nurse Practitioner Family | DX: R10.12 Left upper quadrant pain (principal); R10.2 Pelvic and perineal pain; R19.7 Diarrhea, unspecified; R19.8 Other specified symptoms and signs involving the digestive system and abdomen ==

== ENCOUNTER → 2023-10-30 | Outpatient (REF) | payer OTHER | LOC: M SFHCCLAY 10:43 | PROVIDERS: ATTEND Nurse Practitioner Family | DX: R19.7 Diarrhea, unspecified (principal); R19.8 Other specified symptoms and signs involving the digestive system and abdomen; R10.12 Left upper quadrant pain; R10.2 Pelvic and perineal pain ==

== ENCOUNTER → 2024-03-29 | Outpatient (REF) | LOC: M EMP 07:47 | PROVIDERS: ATTEND Family Medicine | DX: Z11.52 Encounter for screening for COVID-19 (principal) ==

== ENCOUNTER → 2024-06-23 | Outpatient (CLI) | payer BC ==
[2024-06-23 14:11] LABS: POTASSIUM SERUM 4.4 MMOL/L (3.5-5.1)
[2024-06-23 14:24] LABS: FOLLICLE STIMULATING HORMONE 4.2 mIU/ML; THYROID STIMULATING HORMONE 1.872 uIU/ML (0.55-4.78)
[2024-06-23 14:25] LABS: ESTRADIOL 117.1 PG/ML; LUTEINIZING HORMONE 4.7 mIU/ML; PROLACTIN 5.26 NG/ML
[2024-06-23 14:26] LABS: FREE T4 1.01 NG/DL (0.89-1.76)
[2024-06-24 10:13] LABS: DEHYDROEPIANDROSTERONE SULFATE 307 mcg/dL (19-237)
== END ==
LOC: M LAB 13:09
PROVIDERS: ATTEND Dermatology
DX: L70.0 Acne vulgaris (principal)

== ENCOUNTER → 2024-11-05 | Outpatient (REF) | payer BC ==
[2024-11-05 18:28] LABS: ALT/SGPT 55 U/L (7.0-40); AST/SGOT 33 U/L (<34); CALCIUM LEVEL 10.3 MG/DL (8.5-10.1); CARBON DIOXIDE LEVEL 30 MMOL/L (20-31); CHLORIDE LEVEL 102 MMOL/L (98-107); CREATININE FOR GFR 0.69 MG/DL (0.55-1.30); GLOMERULAR FILTRATION RATE > 90.0 (>60); POTASSIUM SERUM 4.6 MMOL/L (3.5-5.1); SODIUM LEVEL 141 MMOL/L (136-145)
[2024-11-05 18:34] LABS: BASO # 0.1 10^3/uL (0.0-0.2); BASO % 0.7 % (0.0-1.0); EOS # 0.1 10^3/uL (0.0-0.5); EOS % 0.7 % (0.0-3.0); LYMPH # 2.0 10^3/uL (1.5-5.0); LYMPH % 22.0 % (24.0-44.0); MONO # 0.7 10^3/uL (0.0-0.8); MONO % 7.4 % (2.0-8.0); NEUTROPHILS # 6.4 10^3/uL (1.5-8.5); NEUTROPHILS % 69.0 % (36.0-66.0); PLATELET COUNT, AUTOMATED 283 10^3/uL (150-450)
== END ==
LOC: M SFHCCLAY 14:53
PROVIDERS: ATTEND Physician Assistant
DX: R42 Dizziness and giddiness (principal)

== ENCOUNTER → 2024-11-12 | Outpatient (REF) | payer BC ==
[2024-11-12 13:21] LABS: BASO # 0.1 10^3/uL (0.0-0.2); BASO % 0.7 % (0.0-1.0); EOS # 0.1 10^3/uL (0.0-0.5); EOS % 1.5 % (0.0-3.0); LYMPH # 1.9 10^3/uL (1.5-5.0); LYMPH % 27.8 % (24.0-44.0); MONO # 0.7 10^3/uL (0.0-0.8); MONO % 10.6 % (2.0-8.0); NEUTROPHILS # 4.1 10^3/uL (1.5-8.5); NEUTROPHILS % 59.1 % (36.0-66.0); PLATELET COUNT, AUTOMATED 252 10^3/uL (150-450)
[2024-11-12 13:23] LABS: C REACTIVE PROTEIN QUANTITATIV < 0.50 MG/DL (<1.0)
[2024-11-12 13:25] LABS: RHEUMATOID FACTOR QUANT < 3.5 IU/ML (<14)
[2024-11-12 14:22] LABS: ERYTHROCYTE SEDIMENTATION RATE 26 mm/hr (0-20)
[2024-11-14 08:07] LABS: FREE ANDROGEN INDEX 6.0 (0.4-8.4); SEX HORM BINDING GLOB 27.4 nmol/L (24.6-122.0); TESTOSTERONE 47 ng/dL (8-60)
== END ==
LOC: M SFHCCLAY 09:09
PROVIDERS: ATTEND Nurse Practitioner Family
DX: R79.89 Other specified abnormal findings of blood chemistry (principal)

== ENCOUNTER → 2024-11-22 | Outpatient (CLI) | payer BC | LOC: M PLAIMG 08:29 | PROVIDERS: ATTEND Physical Medicine & Rehabilitation | DX: M50.30 Other cervical disc degeneration, unspecified cervical region (principal); M47.892 Other spondylosis, cervical region; R20.2 Paresthesia of skin ==

== ENCOUNTER → 2024-11-25 | Outpatient (CLI) | payer BC | LOC: M RAD 07:44 | PROVIDERS: ATTEND Nurse Practitioner Family | DX: R74.8 Abnormal levels of other serum enzymes (principal) ==

== ENCOUNTER → 2024-12-20 | Outpatient (REF) | payer BC ==
[2024-12-22 15:47] LABS: HPV APTIMA Not Detected (Not Detected)
== END ==
LOC: M SFHCWAGY 13:06
PROVIDERS: ATTEND Nurse Practitioner Family
DX: Z12.4 Encounter for screening for malignant neoplasm of cervix (principal); R87.612 Low grade squamous intraepithelial lesion on cytologic smear of cervix (LGSIL); R87.610 Atypical squamous cells of undetermined significance on cytologic smear of cervix (ASC-US)
CPT/HCPCS: 87624; G0123

== ENCOUNTER 2024-12-22 08:19 | Outpatient (RCR) | payer BC | END 2024-12-24 | LOC: M PT 08:19 | PROVIDERS: ATTEND Physical Medicine & Rehabilitation | DX: M47.892 Other spondylosis, cervical region (principal); M50.20 Other cervical disc displacement, unspecified cervical region; M50.30 Other cervical disc degeneration, unspecified cervical region ==

== ENCOUNTER 2025-01-05 08:25 | Outpatient (RCR) | payer BC | END 2025-01-23 | LOC: M PT 08:25 | PROVIDERS: ATTEND Physical Medicine & Rehabilitation | DX: M47.892 Other spondylosis, cervical region (principal); M50.20 Other cervical disc displacement, unspecified cervical region; M50.30 Other cervical disc degeneration, unspecified cervical region ==